=== PATIENT | female | born 1985 | race Caucasian/White ===

== ENCOUNTER 2017-05-18 17:08 | Emergency (ER) | payer MEDICAID ==
[~2017-05-18] VITALS: Ht 157.5 cm; Wt 91.0 kg
[2017-05-18] MEDS ORDERED: FOLI1 PO (17:16)
[2017-05-18] MEDS ORDERED: PREN-155 PO (17:16)
[2017-05-18] MEDS ORDERED: ANTIBIOTIC PO (17:16)
[2017-05-18 18:26] LABS: BASOPHILS % (AUTO) 0.8 % (0.0-2.0); EOSINOPHILS % (AUTO) 0.5 % (1.0-6.0); HEMATOCRIT 36.6 % (36-46); HEMOGLOBIN 12.5 g/dL (12.0-16.0); LYMPHOCYTES # (AUTO) 3.2 K/uL (1.0-4.8); LYMPHOCYTES % (AUTO) 38.8 % (22.0-44.0); MEAN CORPUSCULAR HEMOGLOBIN 30.3 pg (26.0-34.0); MEAN CORPUSCULAR HGB CONC 34.1 G/dL (31.0-37.0); MEAN CORPUSCULAR VOLUME 89 fL (80-100); MONOCYTES # (AUTO) 0.5 K/uL (0.1-1.0); MONOCYTES % (AUTO) 6.1 % (2.0-9.0); NEUTROPHILS # (AUTO) 4.5 K/uL (1.8-7.7); NEUTROPHILS % (AUTO) 53.8 % (40.0-70.0); PLATELET COUNT (AUTO) 270 K/uL (150-450); RED BLOOD CELL COUNT(AUTO) 4.12 MIL/uL (4.00-5.20); RED CELL DISTRIBUTION WIDTH 13.2 % (11.5-14.5)
[2017-05-18 22:07] VITALS: BP 138/78
== END 2017-05-18 22:09 | disposition home or self-care (01) ==
LOC: EMS 17:09
DX: O20.0 Threatened abortion (principal); O20.9 Hemorrhage in early pregnancy, unspecified; Z3A.13 13 weeks gestation of pregnancy
CPT/HCPCS: 76801; 76817; 99285